=== PATIENT | female | born 2000 | race Caucasian/White ===

== ENCOUNTER 2021-06-14 18:53 | Emergency (ER) | payer OTHER ==
[2021-06-14] MEDS ORDERED: KETOROLAC TROMETHAMINE 60 MG/2 ML VIAL IM ONE (19:25)
[2021-06-14 19:26] VITALS: BP 130/77; PULSE 77; TEMP 98.6; BMI 43.9
[2021-06-14] MEDS ORDERED: KETOROLAC TROMETHAMINE 60 MG/2 ML VIAL ONE (19:37)
[2021-06-14] MEDS ORDERED: METOCLOPRAMIDE HCL 10 MG TABLET (FP) PO ONE ×2 (19:38→19:40)
== END 2021-06-14 21:15 | disposition home or self-care (01) ==
LOC: FER 18:53
PROC: 3E023GC Introduction of Other Therapeutic Substance into Muscle, Percutaneous Approach (ICD-10-PCS; principal; 2021-06-14)
DX: R51.9 Headache, unspecified (principal)
CPT/HCPCS: 99284-25

== ENCOUNTER 2022-03-05 10:24 | Emergency (ER) | payer OTHER ==
[2022-03-05] MEDS ORDERED: DEXAMETHASONE SOD PHOSPHATE 10 MG/1 ML VIAL PO ONE (10:35)
[2022-03-05] MEDS ORDERED: IBUPROFEN 600 MG TABLET (FP) PO ONE ×2 (10:36→10:39)
[2022-03-05] MEDS ORDERED: DEXAMETHASONE SOD PHOSPHATE 10 MG/1 ML VIAL ONE (10:39)
[2022-03-05 10:42] VITALS: BP 140/85; PULSE 86; RESP 18; TEMP 99.8; BMI 39.3
== END 2022-03-05 11:05 | disposition home or self-care (01) ==
LOC: FER 10:24
DX: J06.9 Acute upper respiratory infection, unspecified (principal)
CPT/HCPCS: 0241U-QW; 99283-25; J1100

== ENCOUNTER 2022-05-31 10:04 | Emergency (ER) | payer OTHER ==
[2022-05-31 10:13] VITALS: BP 136/94; PULSE 98; RESP 20; TEMP 98.9; BMI 39.3
[2022-05-31] MEDS ORDERED: LIDOCAINE HCL 2% (20ML MULTI-DOSE VIAL) ONE (10:27)
[2022-05-31] MEDS ORDERED: LIDOCAINE HCL 2% (50ML VIAL) INF ONE (10:27)
== END 2022-05-31 11:06 | disposition home or self-care (01) ==
LOC: FER 10:04
DX: L60.0 Ingrowing nail (principal)
CPT/HCPCS: 99282-25

== ENCOUNTER 2022-09-05 07:46 | Emergency (ER) | payer OTHER ==
[2022-09-05] MEDS ORDERED: ALBUTEROL SO4 2.5/IPRATROPIUM 0.5 INH SOL 3 ML VIAL.NEB. NEB ONE ×2 (08:01→08:14)
[2022-09-05] MEDS ORDERED: IBUPROFEN 600 MG TABLET (FP) PO ONE ×2 (08:01→08:14)
[2022-09-05 08:10] VITALS: BP 123/79; PULSE 69; RESP 16; TEMP 99; BMI 39.3
== END 2022-09-05 10:32 | disposition home or self-care (01) ==
LOC: FER 07:46
PROC: 3E0F7GC Introduction of Other Therapeutic Substance into Respiratory Tract, Via Natural or Artificial Opening (ICD-10-PCS; principal; 2022-09-05)
DX: R05.9 Cough, unspecified (principal); R09.81 Nasal congestion; R09.3 Abnormal sputum; J40 Bronchitis, not specified as acute or chronic; Z20.822 Contact with and (suspected) exposure to COVID-19
CPT/HCPCS: 0241U-QW; 71046-TC-FY; 99284-25

== ENCOUNTER 2022-09-21 14:22 | Emergency (ER) | payer OTHER ==
[2022-09-21 14:30] VITALS: BP 130/90; PULSE 100; RESP 18; TEMP 98.9; BMI 39.3
[2022-09-21 15:37] LABS: HEMATOCRIT 44.1 % (32.4-45.2); HEMOGLOBIN 14.9 G/dL (10.7-15.3); MCH 27.2 pg (25.7-33.7); MCHC 33.8 g/dl (32.0-36.0); MEAN CELL VOLUME 80.5 fl (80-96); MEAN PLT VOLUME 9.4 fl (7.5-11.1); PLATELET COUNT 328.7 10^3/uL (134-434); RBC 5.48 10^6/uL (3.60-5.2); RDW 15.2 % (11.6-15.6); WHITE BLOOD COUNT 12.4 10^3/uL (4.0-10.8)
[2022-09-21] MEDS ORDERED: IBUPROFEN 600 MG TABLET (FP) PO ONE ×2 (15:40→16:08)
[2022-09-21] MEDS ORDERED: IBUPROFEN 400 MG TABLET (FP) PO ONE (15:45)
[2022-09-21 16:37] LABS: PLATELET ESTIMATE ADEQUATE
== END 2022-09-21 16:52 | disposition home or self-care (01) ==
LOC: FER 14:22
DX: R59.9 Enlarged lymph nodes, unspecified (principal)
CPT/HCPCS: 36415; 84703; 85027; 87651; 99283-25